=== PATIENT | male | born 1970 | race African-American/Black ===

== ENCOUNTER 2016-05-26 06:48 | Emergency (ER) | payer MEDICAID ==
[~2016-05-26] VITALS: Ht 162.6 cm; Wt 72.7 kg
[2016-05-26] MEDS ORDERED: IBUPROFEN 800MG TABLET PO ONE (07:30)
[2016-05-26 07:44] VITALS: BP 159/92
== END 2016-05-26 08:49 | disposition home or self-care (01) ==
LOC: ER 07:25
DX: S83.92XA Sprain of unspecified site of left knee, initial encounter (principal); M25.462 Effusion, left knee; F17.210 Nicotine dependence, cigarettes, uncomplicated; F12.10 Cannabis abuse, uncomplicated; F14.10 Cocaine abuse, uncomplicated; Y04.0XXA Assault by unarmed brawl or fight, initial encounter; Y92.89 Other specified places as the place of occurrence of the external cause
CPT/HCPCS: 73562; 99284